=== PATIENT | male | born 1980 | race Caucasian/White ===

== ENCOUNTER 2017-02-07 09:44 | Emergency (ER) | payer BC, OTHER ==
[2017-02-07 10:19] VITALS: BP 117/81
--- NOTE | 2017-02-07 12:23 | UC ---
Throat Pain/Nasal Lenard HPI - HPI Summary HPI Summary: 36 yo male has had a sore throat x 2 days myalgias and headache household exposure to strep (dxed about 1 1/2 weeks ago) no anaphylactic rx with PCN - History of Current Complaint Chief Complaint: UCRespiratory Stated Complaint: SORE THROAT Time Seen by Provider: 02/07/17 12:23 Hx Obtained From: Patient Onset/Duration: Gradual Onset, Lasting Days Severity: Moderate Pain Intensity: 4 Pain Scale Used: 0-10 Numeric Associated Signs & Symptoms: Positive: Fever - ninfa - Epiglottits Risk Factors Epiglottis Risk Factors: Negative - Allergies/Home Medications Allergies/Adverse Reactions: Allergies Allergy/AdvReac Type Severity Reaction Status Date / Time Penicillins Allergy HIVES AND Verified 02/07/17 10:13 SWELLING Home Medications: Home Medications Loratadine 10 mg PO DAILY PRN 02/07/17 [History Confirmed 02/07/17] PMH/Surg Hx/FS Hx/Imm Hx Endocrine History Of: Denies: Diabetes Cardiovascular History Of: Denies: Hypertension, Pacemaker/ICD GI/ History Of: Denies: Renal Disease - Surgical History Surgical History: Yes Surgery Procedure, Year, and Place: 12/2014 - [facility] - OR[facility] ( W/ PLATES & SCREWS) - Family History Known Family History: Positive: Hypertension - Social History Alcohol Use: Occasionally Substance Use Type: None Smoking Status (MU): Current Some Day Smoker Type: Cigarettes, Cigars Amount Used/How Often: occasional Review of Systems Constitutional: Fever - ninfa, Chills, Fatigue Skin: Negative Eyes: Negative ENT: Sore Throat Respiratory: Negative Cardiovascular: Negative Gastrointestinal: Negative Genitourinary: Negative Motor: Negative Neurovascular: Negative Musculoskeletal: Myalgia Neurological: Headache Psychological: Negative All Other Systems Reviewed And Are Negative: Yes Physical Exam Triage Information Reviewed: Yes Appearance: Well-Appearing, No Pain Distress, Well-Nourished Vital Signs: Initial Vital Signs Temp 98.1 F 02/07/17 10:14 Pulse 86 02/07/17 10:14 Resp 16 02/07/17 10:14 BP 117/81 02/07/17 10:14 Pulse Ox 99 02/07/17 10:14 Vital Signs Reviewed: Yes Eyes: Positive: Conjunctiva Clear ENT: Positive: Hearing grossly normal, Pharyngeal erythema, TMs normal. Negative: Nasal congestion, Nasal drainage, Tonsillar swelling, Tonsillar exudate, Trismus, Muffled/hoarse voice Dental: Negative: Dental Fracture @, Abscess @ Neck: Positive: Supple, Nontender, Enlarged Nodes @ - ant cerv Respiratory: Positive: Lungs clear, Normal breath sounds, No respiratory distress, No accessory muscle use Cardiovascular: Positive: RRR, No Murmur Musculoskeletal: Positive: ROM Intact, No Edema Neurological: Positive: Alert Psychological Exam: Normal Skin Exam: Normal Throat Pain/Nasal Course/Dx - Differential Dx/Diagnosis Provider Diagnoses: acute phayngitis. household exposure to strep Discharge - Discharge Plan Condition: Stable Disposition: HOME Prescriptions: Cephalexin CAP* [Keflex CAP*] 500 mg PO BID #20 cap Patient Education Materials: Pharyngitis (ED) Referrals: No Primary Care Phys,NOPCP [Primary Care Provider] - Additional Instructions: recheck in 3-4 days if not better
== END 2017-02-07 12:34 | disposition home or self-care (01) ==
LOC: UCCORT 09:44
DX: J02.9 Acute pharyngitis, unspecified (principal); M79.1 Myalgia; R51 Headache; Z88.0 Allergy status to penicillin; Z72.0 Tobacco use
CPT/HCPCS: 87651; 99212; G0463